=== PATIENT | female | born 1945 | race Caucasian/White ===

== ENCOUNTER 2017-10-27 18:53 | Observation (INO) | payer OTHER ==
[2017-10-27 19:45] LABS: Absolute Monocytes 1.1 K/uL (0.1-1.3); Absolute Neutrophil 4.1 K/uL (1.8-8.0); Basophils % 0.9 % (0-1.3); Eosinophils % 7.9 % (0-4.4); Hematocrit 28.5 % (36.0-45.0); Lymphocytes % 25.2 % (15.3-44.8); MCH 33.8 pg (27.0-35.0); MCV 98.2 fL (80-100); MPV 7.6 fL (7.6-11.3); Monocytes % 13.9 % (3.3-12.3)
[2017-10-27 19:49] LABS: Protime INR 0.99
[2017-10-27] MEDS ORDERED: NA CHLORIDE 0.9% 1,000 ML ONE (20:03)
[2017-10-27 20:04] LABS: ALT/SGPT 22 U/L (12-78); AST/SGOT 20 U/L (15-37); Albumin 3.3 g/dL (3.4-5.0); Alkaline Phosphatase 98 U/L (45-117); BUN Blood Urea Nitrogen 40 mg/dL (7-18); Bicarbonate 24 mmol/L (21-32); Bilirubin Direct 0.1 mg/dL (0-0.2); Bilirubin Total 0.4 mg/dL (0.2-1.0); CKMB Creatine Kinase MB < 1.0 ng/mL (0.3-3.6); Creatine Phosphokinase 44 U/L (26-192); Glucose Level 147 mg/dL (74-106); Magnesium 2.3 mg/dL (1.8-2.4); NT PRO-BNP 4751 pg/mL (<125); Potassium 3.6 mmol/L (3.5-5.1); Protein, Total 7.7 g/dL (6.4-8.2); Sodium Level 139 mmol/L (136-145)
--- NOTE | 2017-10-27 20:14 | RAD REPORT ---
EXAM DESCRIPTION: RAD - Chest Single View - 10/27/2017 8:08 pm CLINICAL HISTORY: SOB Chest pain. COMPARISON: No comparisons FINDINGS: Portable technique limits examination quality. Mild to moderate pulmonary edema is noted. The heart is mildly enlarged in size. Bilateral pleural ef fusions are present, greater on the right. IMPRESSION: Mild to moderate CHF/ volume overload.
--- NOTE | 2017-10-27 20:20 | ER ---
Nurse's Notes [facility] Name: Patsy Cárdenas Age: 72 yrs Sex: Female : 1945 Arrival Date: 10/27/2017 Time: 18:55 Bed 7 Private MD: Out, [facility] Diagnosis: Unspecified combined systolic (congestive) and diastolic (congestive) heart failure;Edema, unspecified;Essential (primary) hypertension;Pleural effusion in conditions classified elsewhere-bilateral;Unspecified kidney failure;Anemia, unspecified Presentation: 10/27 19:24 Presenting complaint: Patient states: Shortness of breath x 2 days and mild swelling to tl2 the feet and face. Denies chest pain but reports tightness. Pt in no apparent distress. Transition of care: patient was not received from another setting of care. Onset of symptoms was October 25, 2017. Risk Assessment: Do you want to hurt yourself or someone else? Patient reports no desire to harm self or others. Initial Sepsis Screen: Does the patient meet any 2 criteria? No. Patient's initial sepsis screen is negative. Does the patient have a suspected source of infection? No. Patient's initial sepsis screen is negative. Care prior to arrival: None. 19:24 Method Of Arrival: Ambulatory tl2 19:24 Acuity: CATIE 3 tl2 Triage Assessment: 19:33 General: Appears in no apparent distress. comfortable, Behavior is calm, cooperative, tl2 appropriate for age. Pain: Denies pain. Cardiovascular: Reports chest tightness Denies chest pain, Patient's skin is warm and dry. Edema is 1+ to left foot, left toes, right foot and right toes Rhythm is sinus rhythm. Respiratory: Reports shortness of breath at rest Airway is patent Respiratory effort is even, unlabored, Respiratory pattern is regular, symmetrical, Onset: The symptoms/episode began/occurred yesterday, the patient has mild shortness of breath. GI: No signs and/or symptoms were reported involving the gastrointestinal system. : No signs and/or symptoms were reported regarding the genitourinary system. Derm: Skin is pink, warm \T\ dry. Historical: - Allergies: 19:33 Sulfa (Sulfonamide Antibiotics); tl2 19:33 ZABRINA INHIBITORS; tl2 - Home Meds: 19:33 Albuterol Inhl [Active]; amlodipine 10 mg tab 1 tab BID [Active]; aspirin 81 mg Oral tl2 chew 1 tab once daily [Active]; atorvastatin 80 mg oral tab 1 tab once daily [Active]; bupropion HCl 150 mg Oral TbER 1 tab 2 times per day [Active]; carvedilol 25 mg oral tab 1 tab 2 times per day [Active]; Enbrel SureClick 50 mg/mL (0.98 mL) subcutaneous pnij 1 mL once wkly [Active]; folic acid 1 mg Oral tab 1 tab BID [Active]; furosemide 20 mg Oral tab 1 tab once daily [Active]; hydralazine 100 mg Oral tab 1 tab 3 times per day [Active]; isosorbide mononitrate 120 mg Oral Tb24 1 tab once daily [Active]; isosorbide mononitrate 60 mg Oral Tb24 1 tab once daily [Active]; losartan 100 mg oral tab 1 tab once daily [Active]; Methotrexate (Anti-Rheumatic) Oral 10 mg weekly [Active]; omeprazole 20 mg Oral cpDR 1 cap 2 times per day [Active]; paroxetine HCl 40 mg oral tab 1 tab once daily [Active]; - PMHx: 19:33 Hypertension; Hyperlipidemia; COPD; Rheumatoid Arthritis; Diabetes - NIDDM; tl2 - Immunization history:: Adult Immunizations up to date. - Social history:: Smoking status: Patient uses tobacco products, smokes one-half pack cigarettes per day. - Ebola Screening: : No symptoms or risks identified at this time. Screenin:36 Abuse screen: Denies threats or abuse. Nutritional screening: No deficits noted. tl2 Tuberculosis screening: No symptoms or risk factors identified. Fall Risk None identified. Assessment: 19:33 General: see triage assessment. tl1 20:30 Reassessment: Patient appears in no apparent distress at this time. Patient and/or tl1 family updated on plan of care and expected duration. Pain level reassessed. Patient is alert, oriented x 3, equal unlabored respirations, skin warm/dry/pink. 21:48 Reassessment: Patient appears in no apparent distress at this time. Patient and/or tl1 family updated on plan of care and expected duration. Pain level reassessed. Patient is alert, oriented x 3, equal unlabored respirations, skin warm/dry/pink. 23:13 Reassessment: Patient appears in no apparent distress at this time. Patient and/or tl2 family updated on plan of care and expected duration. Pain level reassessed. Patient is alert, oriented x 3, equal unlabored respirations, skin warm/dry/pink. Patient states feeling better. Vital Signs: 19:33 BP 184 / 40; Pulse 75; Resp 18; Temp 97.7; Pulse Ox 96% on R/A; Weight 52.62 kg; Height tl2 5 ft. 4 in. (162.56 cm); Pain 0/10; 20:56 BP 173 / 50; Pulse 72; Resp 18; Pulse Ox 97% on R/A; mw2 21:47 BP 163 / 53; Pulse 81; Resp 18; Pulse Ox 93% on R/A; tl1 23:01 BP 151 / 46; Pulse 74; Resp 18; Pulse Ox 93% on R/A; tl2 19:33 Body Mass Index 19.91 (52.62 kg, 162.56 cm) tl2 ED Course: 18:55 Patient arrived in ED. sb2 18:55 Out, [facility] is Private Physician. sb2 19:25 Triage completed. tl2 19:33 Arm band placed on right wrist. tl2 19:36 Jasmine Cano, RN is Primary Nurse. tl2 19:36 Patient has correct armband on for positive identification. Placed in gown. Bed in low tl2 position. Call light in reach. Side rails up X 1. Adult w/ patient. 19:36 Inserted saline lock: 20 gauge in right antecubital area, using aseptic technique. tl2 Blood collected. 19:49 Don Figueroa MD is Attending Physician. kristen 20:08 XRAY Chest (1 view) In Process Unspecified. EDMS 20:18 Jonathan Smith MD is Hospitalizing Provider. kristen 23:13 No provider procedures requiring assistance completed. Patient admitted, IV remains in tl2 place. Administered Medications: 20:11 Not Given (Duplicate Order): NS 0.9% 1000 ml IV at 75 ml/hr continuous kristen 20:49 Drug: Nitro-Bid Ointment 2 % 1 inches Route: Transdermal; Site: anterior chest wall; tl2 20:49 Drug: Lasix 60 mg Route: IVP; Site: right antecubital; tl2 23:14 Follow up: Response: No adverse reaction; Marked relief of symptoms tl2 20:49 Drug: Aspirin 81 mg Route: PO; tl2 23:14 Follow up: Response: No adverse reaction tl2 20:49 Drug: Pepcid 20 mg Route: IVP; Site: right antecubital; tl2 23:15 Follow up: Response: No adverse reaction tl2 Outcome: 20:20 Decision to Hospitalize by Provider. kristen 23:13 Admitted to Tele accompanied by tech, family with patient, via wheelchair, room 421, tl2 with chart, Report called to PEDRO LUIS [place] 23:13 Condition: stable 23:13 Discharge instructions given to patient, Instructed on the need for admit. 23:40 Patient left the ED. tl2 Signatures: Dispatcher [employer] EDMS Don Figueroa MD MD cha Lasagna, Tonya RN RN tl1 Jasmine Cano RN RN tl2 Hemalatha Maciel 2 Vanessa Rashid mw2
--- NOTE | 2017-10-27 20:20 | EDPHYS ---
Physician Documentation [facility] Name: Patsy Cárdenas Age: 72 yrs Sex: Female : 1945 Arrival Date: 10/27/2017 Time: 18:55 Bed 7 Private MD: Out, [facility] ED Physician Don Figueroa HPI: 10/27 20:13 This 72 yrs old Female presents to ER via Ambulatory with complaints of kristen Shortness Of Breath, Feet Swelling, Facial Swelling. 20:13 The patient has shortness of breath at rest, with light activity. Onset: The kristen symptoms/episode began/occurred 2 day(s) ago. Duration: The symptoms are continuous, and are steadily getting worse. The patient's shortness of breath is aggravated by exertion, supine position. Associated signs and symptoms: The patient has no apparent associated signs or symptoms. Severity of symptoms: At their worst the symptoms were mild in the emergency department the symptoms are unchanged. The patient has experienced similar episodes in the past, a few times. Historical: - Allergies: 19:33 Sulfa (Sulfonamide Antibiotics); tl2 19:33 ZABRINA INHIBITORS; tl2 - Home Meds: 19:33 Albuterol Inhl [Active]; amlodipine 10 mg tab 1 tab BID [Active]; aspirin 81 mg Oral tl2 chew 1 tab once daily [Active]; atorvastatin 80 mg oral tab 1 tab once daily [Active]; bupropion HCl 150 mg Oral TbER 1 tab 2 times per day [Active]; carvedilol 25 mg oral tab 1 tab 2 times per day [Active]; Enbrel SureClick 50 mg/mL (0.98 mL) subcutaneous pnij 1 mL once wkly [Active]; folic acid 1 mg Oral tab 1 tab BID [Active]; furosemide 20 mg Oral tab 1 tab once daily [Active]; hydralazine 100 mg Oral tab 1 tab 3 times per day [Active]; isosorbide mononitrate 120 mg Oral Tb24 1 tab once daily [Active]; isosorbide mononitrate 60 mg Oral Tb24 1 tab once daily [Active]; losartan 100 mg oral tab 1 tab once daily [Active]; Methotrexate (Anti-Rheumatic) Oral 10 mg weekly [Active]; omeprazole 20 mg Oral cpDR 1 cap 2 times per day [Active]; paroxetine HCl 40 mg oral tab 1 tab once daily [Active]; - PMHx: 19:33 Hypertension; Hyperlipidemia; COPD; Rheumatoid Arthritis; Diabetes - NIDDM; tl2 - Immunization history:: Adult Immunizations up to date. - Social history:: Smoking status: Patient uses tobacco products, smokes one-half pack cigarettes per day. - Ebola Screening: : No symptoms or risks identified at this time. ROS: 20:15 Constitutional: Negative for fever, chills, and weight loss, Eyes: Negative for injury, kristen pain, redness, and discharge, ENT: Negative for injury, pain, and discharge, Neck: Negative for injury, pain, and swelling, Cardiovascular: Negative for chest pain, palpitations, and edema, Abdomen/GI: Negative for abdominal pain, nausea, vomiting, diarrhea, and constipation, Back: Negative for injury and pain, : Negative for injury, bleeding, discharge, and swelling, Skin: Negative for injury, rash, and discoloration, Neuro: Negative for headache, weakness, numbness, tingling, and seizure, Psych: Negative for depression, anxiety, suicide ideation, homicidal ideation, and hallucinations, Allergy/Immunology: Negative for hives, rash, and allergies, Endocrine: Negative for neck swelling, polydipsia, polyuria, polyphagia, and marked weight changes, Hematologic/Lymphatic: Negative for swollen nodes, abnormal bleeding, and unusual bruising. 20:15 Respiratory: Positive for cough, dyspnea on exertion, orthopnea. 20:15 MS/extremity: Positive for swelling. Exam: 20:15 Constitutional: This is a well developed, well nourished patient who is awake, alert, kristen and in no acute distress. Head/Face: Normocephalic, atraumatic. Eyes: Pupils equal round and reactive to light, extra-ocular motions intact. Lids and lashes normal. Conjunctiva and sclera are non-icteric and not injected. Cornea within normal limits. Periorbital areas with no swelling, redness, or edema. ENT: Nares patent. No nasal discharge, no septal abnormalities noted. Tympanic membranes are normal and external auditory canals are clear. Oropharynx with no redness, swelling, or masses, exudates, or evidence of obstruction, uvula midline. Mucous membranes moist. Neck: Trachea midline, no thyromegaly or masses palpated, and no cervical lymphadenopathy. Supple, full range of motion without nuchal rigidity, or vertebral point tenderness. No Meningismus. Chest/axilla: Normal chest wall appearance and motion. Nontender with no deformity. No lesions are appreciated. Cardiovascular: Regular rate and rhythm with a normal S1 and S2. No gallops, murmurs, or rubs. Normal PMI, no JVD. No pulse deficits. Respiratory: Lungs have equal breath sounds bilaterally, clear to auscultation and percussion. No rales, rhonchi or wheezes noted. No increased work of breathing, no retractions or nasal flaring. Abdomen/GI: Soft, non-tender, with normal bowel sounds. No distension or tympany. No guarding or rebound. No evidence of tenderness throughout. Back: No spinal tenderness. No costovertebral tenderness. Full range of motion. Skin: Warm, dry with normal turgor. Normal color with no rashes, no lesions, and no evidence of cellulitis. Neuro: Awake and alert, GCS 15, oriented to person, place, time, and situation. Cranial nerves II-XII grossly intact. Motor strength 5/5 in all extremities. Sensory grossly intact. Cerebellar exam normal. Normal gait. Psych: Awake, alert, with orientation to person, place and time. Behavior, mood, and affect are within normal limits. 20:15 Musculoskeletal/extremity: Extremities: swelling, ROM: full active range of motion, full passive range of motion, Circulation is intact in all extremities. Sensation intact. Compartment Syndrome exam of affected extremity: is normal. DVT Exam: Vital Signs: 19:33 BP 184 / 40; Pulse 75; Resp 18; Temp 97.7; Pulse Ox 96% on R/A; Weight 52.62 kg; Height tl2 5 ft. 4 in. (162.56 cm); Pain 0/10; 20:56 BP 173 / 50; Pulse 72; Resp 18; Pulse Ox 97% on R/A; mw2 21:47 BP 163 / 53; Pulse 81; Resp 18; Pulse Ox 93% on R/A; tl1 23:01 BP 151 / 46; Pulse 74; Resp 18; Pulse Ox 93% on R/A; tl2 19:33 Body Mass Index 19.91 (52.62 kg, 162.56 cm) tl2 MDM: 19:49 Patient medically screened. kristen 20:15 Data reviewed: vital signs, nurses notes, lab test result(s), EKG, radiologic studies. [facility] 10/27 19:22 Order name: Basic Metabolic Panel; Complete Time: 20:11 10/27 19:22 Order name: CBC with Diff; Complete Time: 19:49 tl1 10/27 19:22 Order name: Ckmb; Complete Time: 20:11 1 10/27 19:22 Order name: CPK; Complete Time: 20:11 1 10/27 19:22 Order name: LFT's; Complete Time: 20:11 1 10/27 19:22 Order name: Magnesium; Complete Time: 20:11 tl1 10/27 19:22 Order name: NT PRO-BNP; Complete Time: 20:11 1 10/27 19:22 Order name: PT-INR; Complete Time: 20:11 [facility] 10/27 19:22 Order name: Ptt, Activated; Complete Time: 20:11 [facility] 10/27 19:22 Order name: Troponin (emerg Dept Use Only); Complete Time: 20:11 [facility] 10/27 19:51 Order name: Urine Culture [facility] 10/27 19:51 Order name: Lipase; Complete Time: 20:11 [facility] 10/27 21:15 Order name: Urine Dipstick--Ancillary (enter results) ms 10/27 21:18 Order name: Urine Dipstick-Ancillary EDMS 10/27 19:22 Order name: XRAY Chest (1 view); Complete Time: 20:57 [facility] 10/27 19:22 Order name: EKG; Complete Time: 19:22 [facility] 10/27 19:22 Order name: Cardiac monitoring; Complete Time: 19:36 1 10/27 19:22 Order name: EKG - Nurse/Tech; Complete Time: 19:36 1 10/27 19:22 Order name: IV Saline Lock; Complete Time: 19:37 1 10/27 19:22 Order name: Labs collected and sent; Complete Time: 19:37 1 10/27 19:22 Order name: O2 Per Protocol; Complete Time: 19:37 1 10/27 19:22 Order name: O2 Sat Monitoring; Complete Time: 19:37 1 10/27 19:22 Order name: Urine Dipstick-Ancillary (obtain specimen); Complete Time: 21:08 1 10/27 20:23 Order name: CONS Physician Consult EDMS 10/27 20:23 Order name: Echo with Doppler EDMS Administered Medications: 20:11 Not Given (Duplicate Order): NS 0.9% 1000 ml IV at 75 ml/hr continuous kristen 20:49 Drug: Nitro-Bid Ointment 2 % 1 inches Route: Transdermal; Site: anterior chest wall; tl2 20:49 Drug: Lasix 60 mg Route: IVP; Site: right antecubital; tl2 23:14 Follow up: Response: No adverse reaction; Marked relief of symptoms tl2 20:49 Drug: Aspirin 81 mg Route: PO; tl2 23:14 Follow up: Response: No adverse reaction tl2 20:49 Drug: Pepcid 20 mg Route: IVP; Site: right antecubital; tl2 23:15 Follow up: Response: No adverse reaction tl2 Disposition: 10/27/17 20:20 Hospitalization ordered by Jonathan Smith for Inpatient Admission. Preliminary diagnosis are Unspecified combined systolic (congestive) and diastolic (congestive) heart failure, Edema, unspecified, Essential (primary) hypertension, Pleural effusion in conditions classified elsewhere - bilateral, Unspecified kidney failure, Anemia, unspecified. - Bed requested for Telemetry/MedSurg (Inpatient). - Status is Inpatient Admission. tl2 - Condition is Fair. - Problem is new. - Symptoms have improved. UTI on Admission? No Signatures: Dispatcher [employer] EDRI Don Figueroa MD MD cha Lasagna, Tonya, RN RN tl1 Graciela Holbrook RN RN Jasmine Cano RN RN tl2 Corrections: (The following items were deleted from the chart) 20:24 20:20 Hospitalization Ordered by Jonathan Smith MD for Inpatient Admission. Preliminary kristen diagnosis is Unspecified combined systolic (congestive) and diastolic (congestive) heart failure; Edema, unspecified; Essential (primary) hypertension; Pleural effusion in conditions classified elsewhere - bilateral. Bed requested for Telemetry/MedSurg (Inpatient). Status is Inpatient Admission. Condition is Fair. Problem is new. Symptoms have improved. UTI on Admission? No. kristen 22:57 20:24 10/27/2017 20:20 Hospitalization Ordered by Jonathan Smith MD for Inpatient cg Admission. Preliminary diagnosis is Unspecified combined systolic (congestive) and diastolic (congestive) heart failure; Edema, unspecified; Essential (primary) hypertension; Pleural effusion in conditions classified elsewhere - bilateral; Unspecified kidney failure; Anemia, unspecified. Bed requested for Telemetry/MedSurg (Inpatient). Status is Inpatient Admission. Condition is Fair. Problem is new. Symptoms have improved. UTI on Admission? No. kristen 23:40 22:57 10/27/2017 20:20 Hospitalization Ordered by Jonathan Smith MD for Inpatient tl2 Admission. Preliminary diagnosis is Unspecified combined systolic (congestive) and diastolic (congestive) heart failure; Edema, unspecified; Essential (primary) hypertension; Pleural effusion in conditions classified elsewhere - bilateral; Unspecified kidney failure; Anemia, unspecified. Bed requested for Telemetry/MedSurg (Inpatient). Status is Inpatient Admission. Condition is Fair. Problem is new. Symptoms have improved. UTI on Admission? No.
[2017-10-27] MEDS ORDERED: ASPIRIN 81 MG CHEWABLE TABLET ONE ×2 (20:28→20:31)
[2017-10-27] MEDS ORDERED: FUROSEMIDE 100 MG/10 ML VIAL IV ONE (20:28)
[2017-10-27] MEDS ORDERED: NITROGLYCERIN 1 GM PKT TD ONE (20:28)
[2017-10-27] MEDS ORDERED: FAMOTIDINE 20 MG/2 ML VIAL IV ONE (20:29)
[2017-10-27 21:17] LABS: Urine Blood NEGATIVE (NEG); Urine Glucose NEGATIVE (NEG); Urine Protein 1+ (NEG)
[2017-10-27] MEDS ORDERED: ACETAMINOPHEN 500 MG TAB PO PRN (22:11)
[2017-10-27] MEDS ORDERED: ONDANSETRON 4 MG/2 ML VIAL IV PRN (22:11)
[2017-10-28 05:33] LABS: Absolute Lymphocytes (CBC) 1.7 K/uL (0.7-4.9); Absolute Monocytes 0.8 K/uL (0.1-1.3); Absolute Neutrophil 3.2 K/uL (1.8-8.0); Basophils % 1.1 % (0-1.3); Eosinophils % 9.2 % (0-4.4); Hematocrit 27.6 % (36.0-45.0); Lymphocytes % 27.3 % (15.3-44.8); MCV 96.2 fL (80-100); MPV 7.6 fL (7.6-11.3); Monocytes % 12.4 % (3.3-12.3); RBC Red Blood Cell Count 2.87 M/uL (3.86-4.86)
[2017-10-28 05:52] LABS: Magnesium 2.1 mg/dL (1.8-2.4); Phosphorus 4.8 mg/dL (2.5-4.9); Potassium 3.3 mmol/L (3.5-5.1)
--- NOTE | 2017-10-28 06:49 | EKG ---
Test Date: 2017-10-27 Test Time: 19:09:56 Orientation And Mobility Specialist: SAMY MEASUREMENT RESULTS: Intervals: Rate: 71 TX: 180 QRSD: 90 QT: 420 QTc: 456 Totz: P: 64 TX: 180 QRS: 49 T: 110 INTERPRETIVE STATEMENTS: Normal sinus rhythm Anteroseptal infarct, age undetermined ST & T wave abnormality, consider lateral ischemia Abnormal ECG No previous ECG available for comparison Electronically Signed On 10-28-17 06:48:14 CDT by Wilbur Almonte
--- NOTE | 2017-10-28 08:13 | P.HP ---
Certification for Inpatient Patient admitted to: Inpatient With expected LOS: >2 Midnights Patient will require the following post-hospital care: None Practitioner: I am a practitioner with admitting privileges, knowledge of patient current condition, hospital course, and medical plan of care. Services: Services provided to patient in accordance with Admission requirements found in Title 42 Section 412.3 of the Code of Federal Regulations Patient History Date of Service: 10/27/17 Reason for admission: Congestive heart failure exacerbation History of Present Illness: Patient is a 72-year-old female who is admitted to the hospital with shortness of breath. Patient was found have pulmonary edema on her chest x-ray. Patient is actually visiting from out of town. She lives in [place], [place]. She is here visiting family. She became short of breath and came to the emergency room. Her workup revealed bilateral pulmonary edema with pleural effusions. Findings were suggestive of congestive heart failure along with elevated BNP levels. Patient be admitted to the hospital for further treatment. Will also do echocardiogram and may need cardiology consultation. Patient did mention to me that she flies out on Tuesday morning. She is hoping she can go home in the next 24-48 hr. Allergies ZABRINA Inhibitors Allergy (Verified 10/27/17 21:30) Hives/Rash Sulfa (Sulfonamide Antibiotics) Allergy (Verified 10/27/17 21:30) Hives Home Medications: Albuterol Inhaler [Ventolin Inhaler*] 2 puff IN Q6H PRN 10/28/17 Amlodipine [Norvasc*] 10 mg PO BID 10/28/17 Aspirin Chewable [Aspirin Chewable*] 81 mg PO DAILY 10/28/17 Atorvastatin Calcium [Lipitor] 80 mg PO DAILY 10/28/17 Buproprion S.r. [Wellbutrin Sr*] 150 mg PO BID 10/28/17 Carvedilol [Coreg*] 25 mg PO BID 10/28/17 Cholecalciferol (Vitamin D3) [Vitamin D 1000 Iu Tab*] 1,000 units PO DAILY 10/28 Etanercept [Enbrel Sureclick] 50 mg SQ EVERY 7TH DAY 10/28/17 Folic Acid 1 mg PO DAILY 10/28/17 Furosemide [Lasix*] 20 mg PO BIDL 10/28/17 Hydralazine [Apresoline*] 100 mg PO TID 10/28/17 Isosorbide Mononitrate [Isosorbide Mononitrate ER] 60 mg PO DAILY 10/28/17 Isosorbide Mononitrate [Isosorbide Mononitrate ER] 120 mg PO DAILY 10/28/17 Losartan Potassium [Cozaar*] 100 mg PO DAILY 10/28/17 Methotrexate [Methotrexate*] 2.5 mg PO EVERY 7TH DAY 10/28/17 Nicotine [Nicoderm*] 21 mg TD DAILY 10/28/17 Omeprazole 20 mg PO BID 10/28/17 PARoxetine HCl [Paxil] 40 mg PO DAILY 10/28/17 - Past Medical/Surgical History Has patient received pneumonia vaccine in the past: Yes Diabetic: Yes -: CHF -: HTN -: Pleural effusion -: kidney failure stage 3 -: COPD -: cholecystectomy -: tonsillectomy - Family History Mother Medical History: Hypertension, Diabetes Father Medical History: Heart disease - Social History Smoking Status: Current some day smoker Alcohol use: No CD- Drugs: No Caffeine use: Yes Place of Residence: Home Review of Systems 10-point ROS is otherwise unremarkable Physical Examination - Vital Signs Temperature: 97.1 F Blood Pressure: 154/59 Pulse: 74 Respirations: 18 Pulse Ox (%): 96 - Physical Exam General: Alert, In no apparent distress, Oriented x3 HEENT: Atraumatic, PERRLA, Mucous membr. moist/pink, EOMI, Sclerae nonicteric Neck: Supple, 2+ carotid pulse no bruit, No LAD, Without JVD or thyroid abnormality Respiratory: Diminished, Crackles/rales, Expiratory wheezes Cardiovascular: Regular rate/rhythm, Normal S1 S2, Systolic murmur Gastrointestinal: Normal bowel sounds, Soft and benign, Non-distended, No tenderness Musculoskeletal: No clubbing, No swelling, No tenderness Integumentary: No rashes Neurological: Normal gait, Normal speech, Normal strength at 5/5 x4 extr, Normal tone, Normal affect Lymphatics: No axilla or inguinal lymphadenopathy - Studies Laboratory Data (last 24 hrs) 10/27/17 19:25: Lipase 161 10/27/17 19:25: PT 11.7, INR 0.99, APTT 32.9 10/27/17 19:25: WBC 7.8, Hgb 9.8 L, Hct 28.5 L, Plt Count 273 10/27/17 19:25: Sodium 139, Potassium 3.6, BUN 40 H, Creatinine 2.40 H, Glucose 147 H, Magnesium 2.3, Total Bilirubin 0.4, AST 20, ALT 22, Alkaline Phosphatase 98 Assessment & Plan - Problems (Diagnosis) (1) Acute exacerbation of CHF (congestive heart failure) Current Visit: Yes Status: Acute (2) Pleural effusion Current Visit: Yes Status: Acute (3) Pulmonary edema Current Visit: Yes Status: Acute (4) Anemia Current Visit: Yes Status: Acute (5) Acute kidney injury superimposed on CKD Current Visit: Yes Status: Acute - Plan Plan: 1. Echocardiogram 2. We will start patient on ARB-allergic to ZABRINA-inhibitor 3. We will start patient on a Beta rosalino in 24-48 hr 4. Cardiology consultation if symptoms do not improve in the next 24 hr 5. Continue with aggressive diuresis 6. Strict I's and O's 7. Repeat CXR 8. Daily weights 9. Education regarding diet and treatment of congestive heart failure Discharge Plan: Home Plan to discharge in: Greater than 2 days - Advance Directives Does patient have a Living Will: No Does patient have a Durable POA for Healthcare: No - Code Status/Comfort Care Code Status Assessed: Yes Code Status: Full Code Critical Care: No Time Spent Managing PTS Care (In Minutes): 50
[2017-10-28] MEDS ORDERED: ALBUTEROL INHALER 60 PUFF/8 GM IH PRN (08:30)
[2017-10-28] MEDS: POTASSIUM 25 MEQ EFFERV TAB PO SCH ×2 (08:41→20:53)
[2017-10-28] MEDS: ENOXAPARIN 30 MG/0.3 ML SQ SCH (08:42)
[2017-10-28] MEDS ORDERED: HOME MED 1 EA UNK (Omeprazole [Omeprazole] 20 MG) PO SCH (09:00)
[2017-10-28] MEDS ORDERED: VALSARTAN 80 MG TAB PO SCH (09:00)
[2017-10-28] MEDS ORDERED: ETANERCEPT 50 MG SQ SCH (09:00)
[2017-10-28] MEDS: ISOSORBIDE MONO SR 60 MG TAB PO SCH (09:00)
[2017-10-28] MEDS ORDERED: FUROSEMIDE 40 MG/4 ML VIAL IV SCH (09:00)
[2017-10-28] MEDS: FUROSEMIDE 20 MG TABLET PO SCH ×2 (09:00→17:21)
[2017-10-28] MEDS: ASPIRIN 81 MG CHEWABLE TABLET PO SCH (09:00)
[2017-10-28] MEDS ORDERED: ISOSORBIDE MONO SR 60 MG TAB PO SCH ×2 (09:00→14:00)
[2017-10-28] MEDS ORDERED: ASPIRIN EC 81 MG TAB PO SCH (09:00)
[2017-10-28] MEDS ORDERED: METHOTREXATE 2.5 MG TAB PO SCH (09:00)
--- NOTE | 2017-10-28 09:47 | CON ---
Reason For Consult: Congestive heart failure. History Of Present Illness: Mrs. Cárdenas was in the hospital at [place], [place] where she lives. She is just visiting her daughter and plans to go back home 2 days from now. She was diagnosed wit h congestive heart failure. She was told to follow a low-sodium diet, was given several medications. She has done well with medications. She believes she was doing well with sodium, but some of the f oods she ate were clearly very poor choices for somebody with congestive heart failure. She has neve r had bypass surgery, pacemaker, defibrillator, or stents. We do not know what any of the test showe d in [place]. Outpatient Medications: Paroxetine, omeprazole, Nicoderm patch, methotrexate, losartan, isosorbide, hydralazine, furosemide, folic acid, etanercept or Enbrel, cholecalciferol, Coreg, bupropion, atorvas tatin, aspirin, amlodipine, and albuterol. Past History: She has a past history of rheumatoid arthritis and hypertension and now past history o f congestive heart failure. Physical Examination: General: She is 5 feet 4 inches, 116 pounds, body mass index 19.9. HEENT: Normal. Some of her joints look like typical rheumatoid arthritis joints in her hand. Lungs: Clear today. Yesterday, she had pulmonary crackles. Heart: Apical impulse that is slightly enlarged and both carotids have very loud bruits. She has di minished distal pulses. No peripheral edema. Perfusion appears to be in pretty good shape. Impression: The patient had congestive heart failure, probably brought on by traveling, eating more sodium than as usual, she has had sandwiches containing cured meats, she has had soups, she has had o ther salty foods, airline food, I feel that is probably what tipped her over. She also has severe re nal failure, variety of health problems, and all of which are very severe. She reports drug intolera nce to ZABRINA inhibitors and sulfa drugs. So, I think the patient should probably go home now that she is diuresed. Follow a low-sodium diet. Resume her other medications and return to the care of her d octors in [place]. JERICHO/CHAITANYA Voice ID: [id number] Report ID: [id number]
[2017-10-28] MEDS: HYDRALAZINE HCL 25 MG TABLET PO SCH ×3 (10:27→20:55)
[2017-10-28] MEDS: AMLODIPINE 10 MG TAB PO SCH ×2 (10:27→20:53)
[2017-10-28] MEDS: CARVEDILOL 25 MG TAB PO SCH ×2 (10:28→20:54)
[2017-10-28] MEDS: PARoxetine HCl 10 MG TAB PO SCH (10:29)
[2017-10-28] MEDS: NICOTINE 21 MG/PAT TD SCH (10:29)
--- NOTE | 2017-10-28 12:27 | RAD REPORT ---
EXAM DESCRIPTION: VAS - CP - 10/28/2017 11:51 am COMPARISON: None. TECHNIQUE: Real-time sonographic evaluation of both carotid systems was performed. Grayscale and Dop pler interrogation was performed with waveform tracing bilaterally. FINDINGS: Normal high resistance waveforms are noted in both external carotid arteries. The common c arotid arteries and internal carotid arteries show normal low resistance waveforms. Bilateral intimal thickening changes are present. Calcified and noncalcified plaquing changes are pre sent. Focal prominent calcified plaque at the origin of the right internal carotid artery is seen res ulting in visual evidence of significant luminal narrowing. Prominent calcified plaque in the proxima l left internal carotid artery as well. The bilateral common carotid artery velocity values are elevated 193 cm/second on the right and 190 c m/second on the left. And internal carotid artery velocity values range from 149-243 cm/second on the right. Velocity values range from 165-357 cm per second on the left. Right ICA/CCA value of 1.3 is n ot in the abnormal range probably due to the unusually high common carotid artery velocity. A left IC A/CCA ratio of 1.8 was calculated. Antegrade flow seen in both vertebral arteries. Velocity values and ratios were recorded and are retained in the patient's imaging records. IMPRESSION: Significant atherosclerotic plaquing changes in the bilateral carotid bulb and internal carotid arteries. Bilateral significant internal carotid velocity elevations are present. There is greater than 50% ct nosis in the bilateral carotid vasculature. Ratio values likely underestimates severity of stenosis d ue to the high common carotid artery velocity values. CT angiography or MR angiography could be performed if there is need for further characterization. No evidence of a hemodynamically significant stenosis.
--- NOTE | 2017-10-28 14:15 | ECHO ---
HEIGHT: 5 ft 4 in WEIGHT: 116 lb 0 oz DATE OF STUDY: 10/28/[address]: Don Figueroa MD 2-DIMENSIONAL: YES M.MODE: YES DOPPLER: YES COLOR FLOW: YES TDS: NO PORTABLE: NO DEFINITY: NO BUBBLE STUDY: NO DIAGNOSIS: CONGESTIVE HEART FAILURE CARDIAC HISTORY: CATHERIZATION: NO SURGERY: NO PROSTHETIC VALVE: NO PACEMAKER: NO MEASUREMENTS (cm) DIASTOLIC (NORMALS) SYSTOLIC (NORMALS) IVSd 1.4 (0.6-1.2) LA Diam 3.5 (1.9-4.0) LVEF 74% LVIDd 4.3 (3.5-5.7) LVIDs 2.4 (2.0-3.5) %FS 43% LVPWd 1.4 (0.6-1.2) Ao Diam 2.7 (2.0-3.7) 2 DIMENSIONAL ASSESSMENT: RIGHT ATRIUM: NORAML LEFT ATRIUM: NORMAL RIGHT VENTRICLE: NORMAL LEFT VENTRICLE: LEFT VENTRICULAR HYPERTROPHY TRICUSPID VALVE: NORMAL MITRAL VALVE: NORMAL PULMONIC VALVE: NORMAL AORTIC VALVE: NORMAL PERICARDIAL EFFUSION: NONE AORTIC ROOT: NORMAL LEFT VENTRICULAR WALL MOTION: NORMAL. DOPPLER/COLOR FLOW: MILD MITRAL AND TRICUSPID REGURGITATION. NORMAL RIGHT VENTRICULAR SYSTOLIC PRESSURE. COMMENTS: NORMAL LEFT VENTRICULAR EJECTION FRACTION. LEFT VENTRICULAR HYPERTROPHY. MILD MITRAL AND TRICUSPID REGURGITATION. NORMAL RIGHT VENTRICULAR SYSTOLIC PRESSURE. TECHNOLOGIST: ALKA COELHO
--- NOTE | 2017-10-28 16:21 | P.PN ---
Subjective Date of Service: 10/28/17 Chief Complaint: Congestive heart failure exacerbation Subjective: Tolerating diet, Ambulating, Improving, Working w/ PT, Doing well Review of Systems General: As per HPI Physical Examination - Vital Signs Temperature: 97.7 F Blood Pressure: 162/59 Pulse: 68 Respirations: 18 Pulse Ox (%): 95 - Physical Exam General: Alert, In no apparent distress HEENT: Atraumatic, PERRLA, EOMI Neck: Supple, JVD not distended Respiratory: Clear to auscultation bilaterally, Normal air movement Cardiovascular: Regular rate/rhythm, Normal S1 S2 Gastrointestinal: Normal bowel sounds, No tenderness Musculoskeletal: No tenderness Integumentary: No rashes Neurological: Normal speech, Normal tone, Normal affect Lymphatics: No axilla or inguinal lymphadenopathy - Studies Laboratory Data (last 24 hrs) 10/27/17 19:25: Lipase 161 10/27/17 19:25: PT 11.7, INR 0.99, APTT 32.9 10/27/17 19:25: WBC 7.8, Hgb 9.8 L, Hct 28.5 L, Plt Count 273 10/27/17 19:25: Sodium 139, Potassium 3.6, BUN 40 H, Creatinine 2.40 H, Glucose 147 H, Magnesium 2.3, Total Bilirubin 0.4, AST 20, ALT 22, Alkaline Phosphatase 98 Medications List Reviewed: Yes Assessment & Plan - Problems (Diagnosis) (1) Acute exacerbation of CHF (congestive heart failure) Onset Date: 10/28/17 Current Visit: Yes Status: Acute Plan: Acute CHF with EF of 74% and Left ventricular Hypertrophy -Resume Home medication as prescribed by PCP -BB, losartan, imdur, lasix -Cardiology consulted. appreciate reccs -ECHO with EF of 74% -Observe for 24hrs for clinical Improvement Qualifiers: Heart failure type: diastolic Qualified Code(s): I50.33 - Acute on chronic diastolic (congestive) heart failure (2) Acute kidney injury superimposed on CKD Onset Date: 10/28/17 Current Visit: Yes Status: Acute Plan: Acute kidney injury with BUN.CR elevated -Avoid nephrotoxic agent (3) Pulmonary edema Onset Date: 10/28/17 Current Visit: Yes Status: Acute Plan: Pulm edema 2.2 to CHF exacerbation -Now improving -ON NC at 2L will wean as tolerated. Qualifiers: Chronicity: acute Qualified Code(s): J81.0 - Acute pulmonary edema Discharge Plan: Home Plan to discharge in: 24 Hours - Code Status/Comfort Care Code Status Assessed: Yes Critical Care: No
[2017-10-28] MEDS ORDERED: ATORVASTATIN 80 MG TAB PO SCH (21:00)
[2017-10-28 21:03] VITALS: O2SAT 95
[2017-10-29 06:28] LABS: Magnesium 2.1 mg/dL (1.8-2.4); Phosphorus 3.9 mg/dL (2.5-4.9); Potassium 3.3 mmol/L (3.5-5.1)
[2017-10-29] MEDS ORDERED: PANTOPRAZOLE 40MG TABLET PO SCH (06:30)
[2017-10-29] MEDS ORDERED: LOSARTAN POTASSIUM 50 MG TABLET PO SCH (09:00)
[2017-10-29] MEDS: NICOTINE 21 MG/PAT TD SCH (09:26)
[2017-10-29] MEDS: ISOSORBIDE MONO SR 60 MG TAB PO SCH (09:27)
[2017-10-29] MEDS: FUROSEMIDE 20 MG TABLET PO SCH (09:28)
[2017-10-29] MEDS: PARoxetine HCl 10 MG TAB PO SCH (09:29)
[2017-10-29] MEDS: HYDRALAZINE HCL 25 MG TABLET PO SCH (09:30)
[2017-10-29] MEDS: AMLODIPINE 10 MG TAB PO SCH (09:30)
[2017-10-29] MEDS: POTASSIUM 25 MEQ EFFERV TAB PO SCH (09:30)
[2017-10-29] MEDS: ASPIRIN 81 MG CHEWABLE TABLET PO SCH (09:31)
[2017-10-29] MEDS: CARVEDILOL 25 MG TAB PO SCH (09:31)
[2017-10-29] MEDS: ENOXAPARIN 30 MG/0.3 ML SQ SCH (09:31)
[2017-10-29 09:32] VITALS: BP 140/63
[2017-10-29 10:22] VITALS: TEMP 98.4
--- NOTE | 2017-10-29 10:43 | P.SSS ---
Patient History Date of Service: 10/29/17 Primary Care Provider: In [place] Reason for admission: Congestive heart failure exacerbation History of Present Illness: Patient is a 72-year-old female who is admitted to the hospital with shortness of breath. Patient was found have pulmonary edema on her chest x-ray. Patient is actually visiting from out of town. She lives in [place], [place]. She is here visiting family. She became short of breath and came to the emergency room. Her workup revealed bilateral pulmonary edema with pleural effusions. Findings were suggestive of congestive heart failure along with elevated BNP levels. Patient be admitted to the hospital for further treatment. Will also do echocardiogram and may need cardiology consultation. Patient did mention to me that she flies out on Tuesday morning. She is hoping she can go home in the next 24-48 hr. Allergies ZABRINA Inhibitors Allergy (Verified 10/27/17 21:30) Hives/Rash Sulfa (Sulfonamide Antibiotics) Allergy (Verified 10/27/17 21:30) Hives Home Medications: Albuterol Inhaler [Ventolin Inhaler*] 2 puff IN Q6H PRN 10/28/17 Amlodipine [Norvasc*] 10 mg PO BID 10/28/17 Aspirin Chewable [Aspirin Chewable*] 81 mg PO DAILY 10/28/17 Atorvastatin Calcium [Lipitor] 80 mg PO DAILY 10/28/17 Buproprion S.r. [Wellbutrin Sr*] 150 mg PO BID 10/28/17 Carvedilol [Coreg*] 25 mg PO BID 10/28/17 Cholecalciferol (Vitamin D3) [Vitamin D 1000 Iu Tab*] 1,000 units PO DAILY 10/28 Etanercept [Enbrel Sureclick] 50 mg SQ EVERY 7TH DAY 10/28/17 Folic Acid 1 mg PO DAILY 10/28/17 Furosemide [Lasix*] 20 mg PO BIDL 10/28/17 Hydralazine [Apresoline*] 100 mg PO TID 10/28/17 Isosorbide Mononitrate [Isosorbide Mononitrate ER] 60 mg PO DAILY 10/28/17 Isosorbide Mononitrate [Isosorbide Mononitrate ER] 120 mg PO DAILY 10/28/17 Losartan Potassium [Cozaar*] 100 mg PO DAILY 10/28/17 Methotrexate [Methotrexate*] 2.5 mg PO EVERY 7TH DAY 10/28/17 Nicotine [Nicoderm*] 21 mg TD DAILY 10/28/17 Omeprazole 20 mg PO BID 10/28/17 PARoxetine HCl [Paxil*] 40 mg PO DAILY 10/28/17 - Past Medical/Surgical History Has patient received pneumonia vaccine in the past: Yes Diabetic: Yes -: CHF -: HTN -: Pleural effusion -: kidney failure stage 3 -: COPD -: cholecystectomy -: tonsillectomy - Family History Mother -: Hypertension, Diabetes Father -: Heart disease - Social History Smoking Status: Current some day smoker Alcohol use: No CD- Drugs: No Caffeine use: Yes Place of Residence: Home Review of Systems General: As per HPI Physical Examination - Vital Signs Temperature: 98.4 F Blood Pressure: 140/63 Pulse: 68 Respirations: 18 Pulse Ox (%): 94 - Physical Exam General: Alert, In no apparent distress HEENT: Atraumatic, PERRLA, Mucous membr. moist/pink, EOMI, Sclerae nonicteric Neck: Supple, 2+ carotid pulse no bruit, No LAD, Without JVD or thyroid abnormality Respiratory: Clear to auscultation bilaterally, Normal air movement Cardiovascular: Regular rate/rhythm, Normal S1 S2 Gastrointestinal: Normal bowel sounds, No tenderness Musculoskeletal: No tenderness Integumentary: No rashes Neurological: Normal gait, Normal speech, Normal strength at 5/5 x4 extr, Normal tone, Normal affect Lymphatics: No axilla or inguinal lymphadenopathy - Diagnosis (Problem(s)) (1) Acute exacerbation of CHF (congestive heart failure) Onset Date: 10/28/17 Current Visit: Yes Status: Resolved Plan: Acute CHF with EF of 74% and Left ventricular Hypertrophy -S/P IV lasix in the ER. Marked Improvement. -Resume Home medication as prescribed by PCP -BB, losartan, imdur, lasix -Cardiology consulted. appreciate reccs -ECHO with EF of 74% -Doing well post observation. DC home today. Qualifiers: Heart failure type: diastolic Qualified Code(s): I50.33 - Acute on chronic diastolic (congestive) heart failure (2) Acute kidney injury superimposed on CKD Onset Date: 10/28/17 Current Visit: Yes Status: Acute Plan: Patient At baseline with Kidney injury. BUN.CR at baseline -Avoid nephrotoxic agent (3) Pulmonary edema Onset Date: 10/28/17 Current Visit: Yes Status: Acute Plan: Pulm edema 2.2 to CHF exacerbation -Now Resolved. -Saturating 94-96% on RA. Qualifiers: Chronicity: acute Qualified Code(s): J81.0 - Acute pulmonary edema Treatment Summary: Pt was admitted to the hospital for CHF exacerbation due to High NA diet and travelling. Had IV lasix here and cardiology consult. ECHO was done with no new changes. Pt had marked improvement in the her SOB after the lasix and thus was switched to PO lasix. Home meds were restarted. Pt was observed for 24hrs and did well overall. She thus is discharged home today with F/u with PCP in [place] once she travels back. - Disposition Disposition: ROUTINE DISCHARGE Condition: GOOD Diet: Regular Activity: Ad lalo
== END 2017-10-29 13:15 | disposition home or self-care (01) ==
LOC: ER 18:53 → ERHOLD 20:45 → INTOOBSV 20:45 → 4TH 23:20
PROVIDERS: ADMIT Hospitalist; ATTEND Family Medicine
DX: I13.0 Hypertensive heart and chronic kidney disease with heart failure and stage 1 through stage 4 chronic kidney disease, or unspecified chronic kidney disease (principal); I50.33 Acute on chronic diastolic (congestive) heart failure; M06.9 Rheumatoid arthritis, unspecified; D64.9 Anemia, unspecified; N17.9 Acute kidney failure, unspecified; J44.9 Chronic obstructive pulmonary disease, unspecified; E11.9 Type 2 diabetes mellitus without complications; F17.210 Nicotine dependence, cigarettes, uncomplicated; N18.3 Chronic kidney disease, stage 3 (moderate); Z79.82 Long term (current) use of aspirin; Z79.899 Other long term (current) drug therapy; Z88.2 Allergy status to sulfonamides; Z88.8 Allergy status to other drugs, medicaments and biological substances
CPT/HCPCS: 36415 ×2; 71045; 80048 ×3; 80076; 81003; 82550; 82553; 82962 ×5; 83690; 83735 ×3; 83880 ×2; 84100 ×2; 84484; 85025 ×2; 85610; 85730; 87086; 87088; 93005; 93306; 93880; 96374; 96375; 99285; G0378 ×2; J1650 ×2; J7030